=== PATIENT | female | born 1995 | race Hispanic/Latino ===

== ENCOUNTER 2017-03-17 18:31 | Emergency (ER) ==
[~2017-03-17] VITALS: Ht 175.3 cm; Wt 127.3 kg
== END 2017-03-17 19:34 | disposition left against medical advice (07) ==
LOC: M ED 18:31
DX: Z53.21 Procedure and treatment not carried out due to patient leaving prior to being seen by health care provider (principal)

== ENCOUNTER → 2017-06-24 | Outpatient (REF) | payer OTHER | LOC: M SFHCLERA 14:46 | DX: J00 Acute nasopharyngitis [common cold] (principal) ==